=== PATIENT | male | born 1980 ===

== ENCOUNTER 2017-11-30 00:23 | Emergency (ER) | payer MEDICAID ==
[2017-11-30 02:36] LABS: BARBITURATES, UR NEGATIVE (NEGATIVE); BENZODIAZEPINES, UR NEGATIVE (NEGATIVE); OPIATES, UR NEGATIVE (NEGATIVE); PHENCYCLIDINE, UR NEGATIVE (NEGATIVE)
--- NOTE | 2017-11-30 02:46 | ED PDOC ---
HPI: General Adult Time Seen by Provider: 11/30/17 00:51 Chief Complaint (Nursing): Medical Clearance Chief Complaint (Provider): Medical Clearance History Per: Patient History/Exam Limitations: no limitations Onset/Duration Of Symptoms: Mins Additional Complaint(s): Luis Fernando Hurtado is a 37 year old male with a past medical history of depression who is presenting to the ED under police custody for medical and psychiatric clearance. Patient states that he drank alcohol today and has had suicidal thoughts in the past but does not currently, he has no intent and no plans. He denies any fever, nausea, vomiting, headache, homicidal ideation, chest pain, shortness of breath, or medical complaints. Past Medical History Reviewed: Historical Data, Nursing Documentation, Vital Signs Vital Signs: Last Vital Signs Temp 98.6 F 11/30/17 03:14 Pulse 71 11/30/17 03:14 Resp 18 11/30/17 03:14 BP 119/84 11/30/17 03:14 Pulse Ox 97 11/30/17 03:14 - Medical History PMH: Depression - Surgical History Surgical History: No Surg Hx - Family History Family History: States: Unknown Family Hx - Social History Current smoker - smoking cessation education provided: No (unknown) Alcohol: Social Drugs: Other (unknown) - Home Medications Home Medications: Ambulatory Orders Medication Instructions Recorded Percocet 325 mg-5 mg 01/16/15 Cyclobenzaprine HCl [Flexeril] 1 tab PO TID PRN #25 tab 01/17/15 Naproxen [Naprosyn] 1 tab PO BID PRN #25 tab 01/17/15 Penicillin V Potassium [Aoracillin 500 mg PO Q6 #28 tab 01/17/15 B] Tramadol Hydrochloride [Tramadol] 50 mg PO Q6 #30 tab 01/17/15 - Allergies Allergies/Adverse Reactions: Allergies Allergy/AdvReac Type Severity Reaction Status Date / Time No Known Allergies Allergy Verified 11/30/17 00:24 Review of Systems ROS Statement: Except As Marked, All Systems Reviewed And Found Negative Constitutional: Negative for: Fever Cardiovascular: Negative for: Chest Pain Respiratory: Negative for: Shortness of Breath Gastrointestinal: Negative for: Nausea, Vomiting, Diarrhea Neurological: Negative for: Headache Psych: Positive for: Suicidal ideation (past). Negative for: Other (homicidal ideation) Physical Exam - Reviewed Nursing Documentation Reviewed: Yes Vital Signs Reviewed: Yes - Physical Exam Comments: GENERAL APPEARANCE: Patient is awake, alert, oriented x 3, in no acute distress. Smells of alcohol. SKIN: Warm, dry; (-) cyanosis HEAD: (-) scalp swelling, (-) scalp tenderness. EYES: (-) conjunctival pallor, (-) scleral icterus, (-) nystagmus. ENMT: Mucous membranes moist. Airway patent: (-) stridor. NECK: (-) tenderness, (-) stiffness, (-) lymphadenopathy. HEART AND CARDIOVASCULAR: (-) irregularity; (-) murmur, (-) gallop. CHEST AND RESPIRATORY: (-) rales, (-) rhonchi, (-) wheezes; breath sounds equal. ABDOMEN: Soft, (-) distention, (-) tenderness, (-) guarding. NEURO AND PSYCH: Mental status as above. monitor tech: Intact. Pupils equal and reactive; EOMI; (-) facial asymmetry; tongue and uvula midline. Strength symmetric. - ECG O2 Sat by Pulse Oximetry: 100 (RA) Pulse Ox Interpretation: Normal Medical Decision Making Medical Decision Making: Etoh 161 UDS +marijuana Patient seen and evaluated by crisis. After crisis evaluation, plan will be for outpatient psych follow up as per Dr. Stallworth. Otherwise patient is medically and psychiatrically cleared for incarceration, patient d/c to the care of the police. Scribe Attestation: Documented by, Judy Mesa acting as a scribe for Jennifer Puentes PA-C. Provider Scribe Attestation: All medical record entries made by the Scribe were at my direction and personally dictated by me. I have reviewed the chart and agree that the record accurately reflects my personal performance of the history, physical exam, medical decision making, and the department course for this patient. I have also personally directed, reviewed, and agree with the discharge instructions and disposition. Disposition - Clinical Impression Clinical Impression: Adjustment disorder - Patient ED Disposition Is Patient to be Admitted: No Counseled Patient/Family Regarding: Diagnosis, Need For Followup - Disposition Disposition: Discharged/Transfer to Law Enforcement Disposition Time: 02:30 Condition: STABLE Additional Instructions: Patient is medically and psychiatrically cleared for incarceration. 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
[2017-11-30 03:54] VITALS: BP 119/84; PULSE 71; RESP 18; TEMP 98.6
[2017-11-30 05:27] VITALS: O2SAT 100
== END 2017-11-30 03:20 ==
LOC: H.ER 00:23
DX: F43.20 Adjustment disorder, unspecified (principal); F32.9 Major depressive disorder, single episode, unspecified

== ENCOUNTER 2018-01-21 05:23 | Emergency (ER) | payer MEDICAID ==
[2018-01-21 05:39] VITALS: BP 110/70; PULSE 77; RESP 16; TEMP 98; O2SAT 100
--- NOTE | 2018-01-22 23:47 | ED PDOC ---
HPI: Psych/Substance Abuse Time Seen by Provider: 01/21/18 05:50 Chief Complaint (Nursing): Lower Extremity Problem/Injury History Per: Patient History/Exam Limitations: no limitations Onset/Duration Of Symptoms: Days (1) Current Symptoms Are (Timing): Better Suicide/Self Injury Attempted (Context): None Modifying Factor(s): None Severity: Mild Pain Scale Rating Of: 2 Associated Symptoms: denies: Suicidal Thoughts Involuntary Hold By: None Additional History Per: Patient Additional Complaint(s): Patient presenting with alcohol intoxication and right foot pain for 1 days. He tripped and landed on the right foot. No other injuries. Past Medical History Reviewed: Historical Data, Nursing Documentation, Vital Signs Vital Signs: Last Vital Signs Temp 98 F 01/21/18 05:33 Pulse 77 01/21/18 05:33 Resp 16 01/21/18 05:33 BP 110/70 01/21/18 05:33 Pulse Ox 100 01/21/18 05:33 - Medical History PMH: Depression Denies: Diabetes, Hepatitis, HIV, HTN, Seizures, Sexually Transmitted Disease - Surgical History Surgical History: No Surg Hx - Family History Family History: States: Unknown Family Hx - Home Medications Home Medications: Ambulatory Orders Medication Instructions Recorded Percocet 325 mg-5 mg 01/16/15 Cyclobenzaprine HCl [Flexeril] 1 tab PO TID PRN #25 tab 01/17/15 Naproxen [Naprosyn] 1 tab PO BID PRN #25 tab 01/17/15 Penicillin V Potassium [Aoracillin 500 mg PO Q6 #28 tab 01/17/15 B] Tramadol Hydrochloride [Tramadol] 50 mg PO Q6 #30 tab 01/17/15 - Allergies Allergies/Adverse Reactions: Allergies Allergy/AdvReac Type Severity Reaction Status Date / Time No Known Allergies Allergy Verified 01/21/18 05:33 Review of Systems ROS Statement: Except As Marked, All Systems Reviewed And Found Negative Physical Exam - Reviewed Nursing Documentation Reviewed: Yes Vital Signs Reviewed: Yes - Physical Exam Appears: Positive for: Well, Non-toxic, No Acute Distress Head Exam: Positive for: ATRAUMATIC Skin: Positive for: Warm, Dry Eye Exam: Positive for: EOMI Cardiovascular/Chest: Positive for: Regular Rate, Rhythm Respiratory: Negative for: Respiratory Distress Extremity: Positive for: Normal ROM. Negative for: Tenderness, Pedal Edema, Calf Tenderness, Deformity, Swelling Neurologic/Psych: Positive for: Alert, Oriented, Gait (steady) - ECG O2 Sat by Pulse Oximetry: 100 Disposition - Clinical Impression Clinical Impression: Alcohol intoxication, Cracked skin on feet, Foot sprain - Patient ED Disposition Is Patient to be Admitted: No Doctor Will See Patient In The: Office Counseled Patient/Family Regarding: Studies Performed, Diagnosis, Need For Followup - Disposition Referrals: [facility]Outside] [facility] [Outside] Disposition: Routine/Home Disposition Time: 05:55 Condition: GOOD Instructions: Alcohol Abuse and Alcoholism (DC)
== END 2018-01-21 05:55 | disposition home or self-care (01) ==
LOC: H.ER 05:23
DX: F10.129 Alcohol abuse with intoxication, unspecified (principal); S93.601A Unspecified sprain of right foot, initial encounter; Y92.89 Other specified places as the place of occurrence of the external cause

== ENCOUNTER 2018-04-20 18:11 | Emergency (ER) | payer MEDICAID ==
[2018-04-20 18:21] VITALS: TEMP 97.9
[2018-04-20] MEDS ORDERED: Sodium Chloride 0.9% 1,000 ML IV STA (18:47)
--- NOTE | 2018-04-20 18:53 | ED PDOC ---
Syncope/Near Syncope/Dizziness Time Seen by Provider: 04/20/18 18:48 Chief Complaint (Nursing): Dizziness/Lightheaded Chief Complaint (Provider): near syncope History Per: Patient (37 y/o male here with near syncope today when walking out from work. Patient denies any chest pain/sob/n/vomiting. Notes one episode diarrhea today after near syncopal episode. States he has had diagnosis of seizure in 1995 at [facility] but did not f/u and is not on medications. D enies any drug/alcohol use .) Past Medical History Reviewed: Historical Data, Nursing Documentation, Vital Signs Vital Signs: Last Vital Signs Temp 97.9 F 04/20/18 18:18 Pulse 65 04/20/18 18:18 Resp 18 04/20/18 18:18 BP 131/91 H 04/20/18 18:18 Pulse Ox 100 04/20/18 18:18 - Medical History PMH: Depression Denies: Diabetes, Hepatitis, HIV, HTN, Seizures, Sexually Transmitted Disease - Family History Family History: States: Unknown Family Hx - Home Medications Home Medications: Ambulatory Orders Medication Instructions Recorded Percocet 325 mg-5 mg 01/16/15 Cyclobenzaprine HCl [Flexeril] 1 tab PO TID PRN #25 tab 01/17/15 Naproxen [Naprosyn] 1 tab PO BID PRN #25 tab 01/17/15 Penicillin V Potassium [Aoracillin 500 mg PO Q6 #28 tab 01/17/15 B] Tramadol Hydrochloride [Tramadol] 50 mg PO Q6 #30 tab 01/17/15 - Allergies Allergies/Adverse Reactions: Allergies Allergy/AdvReac Type Severity Reaction Status Date / Time No Known Allergies Allergy Verified 04/20/18 18:18 Review of Systems ROS Statement: Except As Marked, All Systems Reviewed And Found Negative Neurological: Positive for: Other (near syncope) Physical Exam - Reviewed Nursing Documentation Reviewed: Yes Vital Signs Reviewed: Yes - Physical Exam Appears: Positive for: Well, Non-toxic, No Acute Distress Head Exam: Positive for: ATRAUMATIC, NORMAL INSPECTION, NORMOCEPHALIC Skin: Positive for: Normal Color, Warm, DRY Eye Exam: Positive for: EOMI, Normal appearance, PERRL ENT: Positive for: Normal ENT Inspection Neck: Positive for: Normal, Painless ROM Cardiovascular/Chest: Positive for: Regular Rate, Rhythm Respiratory: Positive for: CNT, Normal Breath Sounds Gastrointestinal/Abdominal: Positive for: Normal Exam, Soft Back: Positive for: Normal Inspection Extremity: Positive for: Normal ROM Neurologic/Psych: Positive for: Alert, Oriented - ECG ECG Rhythm: Positive for: Sinus Rhythm (NSR 64 BPM; NO ECTOPY NO ACUTE CHANGES) O2 Sat by Pulse Oximetry: 100 - Progress ED Course And Treament: NS 1 liter wide open INFLUENZA A/B NEG Disposition - Clinical Impression Clinical Impression: Near syncope - Patient ED Disposition Is Patient to be Admitted: Transfer of Care - Disposition Disposition: Transfer of Care Disposition Time: 19:54 Condition: FAIR Patient Signed Over To: Bailee Nina Handoff Comments: HEAD CT/LABWORK/RE-EVAL
[2018-04-20 19:33] LABS: BASO % 0.3 % (0.0-2.0); EOS # 0.1 K/uL (0.0-0.7); EOS % 2.3 % (0.0-4.0); HEMOGLOBIN 14.6 g/dL (12.0-18.0); LYMPH % 17.3 % (20.0-40.0); MEAN CELL VOLUME 100.5 fl (80.0-94.0); MEAN CORPUSCULAR HEMOGLOBIN 33.3 pg (27.0-31.0); MEAN CORPUSCULAR HGB CONC 33.2 g/dL (33.0-37.0); MONO # 0.5 K/uL (0.0-0.8); NEUT # 4.1 K/uL (1.8-7.0); NEUT % 71.1 % (50.0-75.0); RBC 4.38 Mil/uL (4.40-5.90); RED CELL DISTRIBUTION WIDTH 13.5 % (11.5-14.5); WHITE BLOOD COUNT 5.8 K/uL (4.8-10.8)
[2018-04-20 20:03] LABS: ALB/GLOB RATIO 1.4 (1.0-2.1); ALBUMIN 4.3 g/dL (3.5-5.0); ALT/SGPT 40 U/L (21-72); AST/SGOT 35 U/L (17-59); BLOOD UREA NITROGEN 19 mg/dl (9-20); GFR NON-AFRICAN AMERICAN > 60
[2018-04-20 20:27] LABS: URINE BILIRUBIN NEGATIVE (NEGATIVE); URINE BLOOD NEGATIVE (NEGATIVE); URINE COLOR YELLOW (YELLOW); URINE GLUCOSE (UA) NEG (Normal); URINE LEUKOCYTE ESTERASE NEG Leu/uL (Negative); URINE PROTEIN 30 mg/dL (NEGATIVE); URINE UROBILINOGEN 0.2-1.0 mg/dL (0.2-1.0)
[2018-04-20 20:28] LABS: URINE CLARITY SLIGHT-CLOUDY (Clear)
[2018-04-20 20:39] LABS: BARBITURATES, UR NEGATIVE (NEGATIVE); BENZODIAZEPINES, UR NEGATIVE (NEGATIVE); OPIATES, UR NEGATIVE (NEGATIVE); PHENCYCLIDINE, UR NEGATIVE (NEGATIVE)
--- NOTE | 2018-04-20 22:20 | ED PDOC ---
- Laboratory Results Result Diagrams: 04/20/18 19:15 04/20/18 19:15 - ECG O2 Sat by Pulse Oximetry: 100 Medical Decision Making Medical Decision Making: Head CT without acute abnormalities. (+) sinusitis Disposition - Clinical Impression Clinical Impression: Near syncope, Sinusitis - POA Present On Arrival: None - Disposition Disposition: Routine/Home Disposition Time: 22:20 Condition: GOOD Prescriptions: Amoxicillin/Clavulanate [Augmentin 875 MG-125 MG] 1 tab PO BID #20 tab Instructions: Sinusitis in Adults Forms: [facility] (Estonian)
[2018-04-20 22:57] VITALS: BP 112/65; PULSE 71; RESP 16; O2SAT 99
--- NOTE | 2018-04-21 10:57 | CT ---
Date of service: 04/20/2018 PROCEDURE: CT HEAD WITHOUT CONTRAST. HISTORY: near syncope COMPARISON: None available. TECHNIQUE: Axial computed tomography images were obtained through the head/brain without intravenous contrast. Radiation dose: Total exam DLP = 832.39 mGy-cm. This CT exam was performed using one or more of the following dose reduction techniques: Automated exposure control, adjustment of the mA and/or kV according to patient size, and/or use of iterative reconstruction technique. FINDINGS: HEMORRHAGE: No acute parenchymal, subarachnoid or extra-axial hemorrhage. BRAIN: No mass effect or edema. No atrophy or chronic microvascular ischemic changes. VENTRICLES: Unremarkable. No hydrocephalus. CALVARIUM: Unremarkable. PARANASAL SINUSES: Moderate mucosal thickening within the ethmoid air complex extending superiorly into the frontal sinus more so on the left. There is also minor mucosal thickening within the sphenoid sinus and both maxillary antra MASTOID AIR CELLS: Unremarkable as visualized. No inflammatory changes. OTHER FINDINGS: None. IMPRESSION: No acute intracranial hemorrhage. Mucoperiosteal inflammatory changes within all the paranasal sinuses as described.
--- NOTE | 2018-04-21 18:29 | CARD ---
APPROVED REPORT Date of service: 04/20/2018 EKG Measurement Heart [id number] <Conclusion> Normal sinus rhythm Left ventricular hypertrophy Abnormal ECG
== END 2018-04-20 23:05 | disposition home or self-care (01) ==
LOC: H.ER 18:11
DX: R55 Syncope and collapse (principal); J32.9 Chronic sinusitis, unspecified
CPT/HCPCS: 70450; 80053; 80320; 80324; 80345; 80346; 80349; 80353; 80358; 80361; 81003; 82948; 83735; 83992; 84443; 84484; 85025; 87804; 93005; 96360; 99283; J7030